=== PATIENT | female | born 1955 | race Caucasian/White ===

== ENCOUNTER → 2016-10-24 | Outpatient (CLI) | payer BC, OTHER ==
[~2016-10-24] VITALS: Ht 154.9 cm; Wt 77.1 kg
[~2016-10-24] MED LIST: ASPIR 8181 M1 PO; DAILY VALUE1 EACH PO; MIRAPEX1 MG PO; MOBIC15 MG PO; REQUIP0.5 MG PO
== END | disposition home or self-care (01) ==
LOC: AMB 09-26 13:30
PROC: 0DJD8ZZ Inspection of Lower Intestinal Tract, Via Natural or Artificial Opening Endoscopic (ICD-10-PCS; principal; 2016-10-24)
DX: Z12.11 Encounter for screening for malignant neoplasm of colon (principal); K64.8 Other hemorrhoids; I10 Essential (primary) hypertension; M79.7 Fibromyalgia; E53.8 Deficiency of other specified B group vitamins; E55.9 Vitamin D deficiency, unspecified; Z79.82 Long term (current) use of aspirin; Z80.3 Family history of malignant neoplasm of breast; Z82.49 Family history of ischemic heart disease and other diseases of the circulatory system; Z84.1 Family history of disorders of kidney and ureter; Z82.61 Family history of arthritis; Z82.62 Family history of osteoporosis; Z82.69 Family history of other diseases of the musculoskeletal system and connective tissue; Z83.518 Family history of other specified eye disorder
CPT/HCPCS: J2250; J3010